=== PATIENT | female | born 1975 | race Caucasian/White ===

== ENCOUNTER → 2016-12-15 | Outpatient (CLI) | payer OTHER ==
[~2016-12-15] MED LIST: ERYTOIN10 EACH EYE; LACTCAP8 PO
[2016-12-15 15:20] LABS: AUTOMATED NEUTROPHIL # 6.1 TH/MM3 (1.8-7.7); BASOPHIL # 0.1 TH/MM3 (0-0.2); BASOPHIL % 0.6 % (0.0-2.0); EOSINOPHIL # 0.1 TH/MM3 (0-0.4); EOSINOPHIL % 1.4 % (0.0-4.0); HEMATOCRIT 37.7 % (35.0-46.0); HEMO FLAGS DIFF FINAL; LYMPH % 23.3 % (9.0-44.0); LYMPHOCYTE # 2.1 TH/MM3 (1.0-4.8); MEAN CELL VOLUME 88.5 FL (80.0-100.0); MEAN CORPUSCULAR HEMOGLOBIN 29.1 PG (27.0-34.0); MEAN CORPUSCULAR HGB CONC 32.9 % (32.0-36.0); NEUT % 68.7 % (16.0-70.0); PLATELET COUNT 250 TH/MM3 (150-450); RED BLOOD COUNT 4.26 MIL/MM3 (4.00-5.30); RED CELL DISTRIBUTION WIDTH 13.8 % (11.6-17.2); WHITE BLOOD COUNT 8.8 TH/MM3 (4.0-11.0)
== END ==
LOC: CPRE 14:32
PROVIDERS: ATTEND Obstetrics & Gynecology
DX: N75.0 Cyst of Bartholin's gland (principal); Z01.812 Encounter for preprocedural laboratory examination
CPT/HCPCS: 36415; 84703; 85025; 86850; 86900; 86901

== ENCOUNTER → 2016-12-17 | Day surgery (SDC) | payer OTHER ==
[~2016-12-17] VITALS: Ht 167.6 cm; Wt 69.1 kg
[~2016-12-17] MED LIST changes: +*MEPERIDINE 25 MG INJ VIAL PERIprocedural Use ONLY ONE; +ACETAMINOPHEN 1000 MG/100 ML VIAL IV ONE; +BUPIVACAINE/EPINEPHRINE 0.25% PF 30 ML VIAL INFIL ONE; +DO NOT ADM ANY ANTICOAGULANT DRUGS XX PRN; +HYDROmorphone HCL PF 1 MG/ML VIAL IVP PRN; +HYDROmorphone HCL PF 2 MG/ML VIAL ONE; +IBUPROFEN 600 MG TAB PO PRN; +INSULIN HUMAN REGULAR 1,000 UNITS/10 ML VIAL SQ PRN; +KETOROLAC TROMETHAMINE 30 MG/ML (IVP) VIAL IVP PRN; +LACTATED RINGER'S 1000 ML INJ 1,000 ML IV ONE; +LACTATED RINGER'S 1000 ML INJ 1,000 ML IV SCH; +LACTATED RINGER'S 1000 ML IV SCH; +LORazepam 0.5 MG TAB PO PRN; +METOPROLOL TARTRATE 25 MG TAB PO PRN; +MIDAZOLAM HCL 2 MG/2 ML VIAL ONE; +ONDANSETRON HCL 4 MG/2 ML VIAL IV PUSH ONE; +ONDANSETRON HCL 4 MG/2 ML VIAL IVP PRN; +PROMETHAZINE INJ 25 MG/ML VIAL IM PRN; +PROPOFOL 200 MG/20 ML AMP IV ONE; +SODIUM CHLORID 0.9% 500 ML IV SCH; +SODIUM CHLORIDE 0.9% FLUSH 5 ML FLUSH FLUSH PRN; +SODIUM CHLORIDE 0.9% FLUSH 5 ML FLUSH FLUSH SCH; +ceFAZolin 2 GM PREMIX 50 ML IV SCH; +ceFAZolin 2 GM PREMIX 50 ML ONE; +diphenhydrAMINE HCL 25 MG CAP PO PRN; +oxyCODONE/ACETAMINOPHEN 5 MG/325 MG TAB PO PRN
[2016-12-17 08:07] VITALS: BP 110/64; PULSE 56; RESP 20; TEMP 97.7; O2SAT 100
[2016-12-17 12:30] VITALS: BP 104/67; PULSE 52; RESP 20; TEMP 98; O2SAT 100
--- NOTE | 2016-12-23 13:11 | MP ---
cc: ILDA JOE M.D. DATE OF SURGERY 12/17/2016 PREOPERATIVE DIAGNOSIS Patient with recurrent left-sided Bartholin cyst. PROCEDURE Left Bartholin's cystectomy, excision of lesion. POSTOPERATIVE DIAGNOSIS Patient with recurrent left-sided Bartholin cyst. SURGEON MD Anthony ANESTHESIA General LMA ESTIMATED BLOOD LOSS 50 cc. DRAINS None. OPERATIVE FINDINGS The patient had a 3.5 to 4-cm recurrent mucous filled cyst of the left Bartholin's. Excision was made down to the base. Tissue sent in formalin. INDICATIONS FOR PROCEDURE Patient with previous Bartholin's cyst removal with recurrence of cyst formation. The patient is symptomatic. Recommend re-excision. The patient received Ancef 2 grams prophylactically as an antibiotic. PROCEDURE DESCRIPTION The patient was taken to the operating room in stable condition, underwent general anesthesia with LMA placement. She was carefully positioned in dorsal lithotomy position using Miquel stirrups. She had sequentials placed on the lower extremities for VTE prophylaxis. She was prepped and draped. A time-out was conducted and agreed by all present in the room. The left side the cyst was delineated. The base and soft tissue was injected with 10 cc of 0.25% Marcaine with epinephrine. A linear incision was made on the medial aspect of the labia minora superior to the cyst and this was carried down to a length of about 3 cm and then an elliptical incision was made on the contralateral side of that incision to excise the portion of the labia minora. This was dissected allowing dissection of the cyst away from the vulva and associated vaginal tissues. This was carried through to the base by a combination of sharp dissection and blunt dissection. The cyst was excised at its base. The supplying arterial pedicle was clamped with hemostats and sutured with 2-0 Vicryl for hemostasis. This was accomplished with multiple interrupted sutures of 2-0 Vicryl accomplishing closure of the deep defect and providing hemostatic control. After completion of initial wound closure the labia was then closed with a running suture of 3-0 Vicryl closing the defect symmetrically. No active bleeding or hematoma was noted. At the completion of the case the remaining Marcaine was used to inject the associated soft tissue for postoperative pain management. At the completion of the case, final count was correct. The patient was stable. Again, no active bleeding or hematoma was forming. Antibiotic ointment was applied to non-absorbent dressing to place over the wound. MD KINA Lemos/SSB /10:20 AM /1:02 PM
== END | disposition home or self-care (01) ==
LOC: HSDC 07:26
PROVIDERS: ATTEND Obstetrics & Gynecology
DX: N75.0 Cyst of Bartholin's gland (principal); L72.0 Epidermal cyst
CPT/HCPCS: 00940; 56440; 88304; J0131; J1170; J2175; J2250; J2405; J7120; J0690